=== PATIENT | male | born 1985 | race Caucasian/White ===

== ENCOUNTER → 2020-10-28 12:13 | Outpatient (CLI) | payer OTHER, SELFPAY ==
[2020-10-28 15:16] LABS: Hematocrit 39.9 % (40-54); Hemoglobin 12.8 g/dL (13.0-16.5); Mean Corp Hgb Conc 32.1 g/dL (32-36); Mean Corpuscular Hgb 28.1 pg (27.0-32.0); Mean Corpuscular Volume 87.7 fL (80-94); Mean Platelet Vol. 9.2 fl (6.2-12.0); Platelet Count 325 K/mm3 (150-450); RBC Distribution Width CV 16.2 % (11.6-14.6); Red Blood Count 4.55 M/mm3 (4.6-6.2)
[2020-10-28 15:43] LABS: AST(SGOT) 16 U/L (15-37); Alanine Aminotransfer ALT/SGPT 31 U/L (16-61); Albumin, Serum 3.6 g/dL (3.2-5.0); Alkaline Phosphatase 55 U/L (45-117); Anion Gap 2 (5-15); BUN 12 mg/dL (7-18); BUN/Creat Ratio 12.9 RATIO (10-20); CRP < 2.90 mg/L (0.0-3.0); Calcium,Total 9.1 mg/dL (8.5-10.1); Chloride 105 mmol/L (98-107); Creatinine, Serum 0.93 mg/dL (0.70-1.30); EST Glomerular Filtration Rate 98 mL/min (>60); Est Glom Filt Rate - Afr Amer 119 mL/min (>60); Globulin 3.6 g/dL (2.2-4.2); Glucose 98 mg/dL (74-106); Iron 35 ug/dL (65-175); Potassium 4.2 mmol/L (3.5-5.1); Protein, Total 7.2 g/dL (6.4-8.2); Sodium Level 139 mmol/L (136-145)
== END ==
PROVIDERS: PCP Family Medicine; Referring Provider Internal Medicine Gastroenterology; Visit Provider Internal Medicine Gastroenterology
DX: K50.90 Crohn's disease, unspecified, without complications (principal)
CPT/HCPCS: 36415; 80053; 83540; 85027; 86140

== ENCOUNTER → 2020-12-03 11:58 | Outpatient (CLI) | payer OTHER, SELFPAY | PROVIDERS: PCP Family Medicine; Referring Provider Internal Medicine Gastroenterology; Visit Provider Internal Medicine Gastroenterology | DX: K50.90 Crohn's disease, unspecified, without complications (principal) | CPT/HCPCS: 36415 ==

== ENCOUNTER → 2022-01-12 | Outpatient (CLI) | payer OTHER, SELFPAY ==
[2022-01-12 17:32] LABS: Hematocrit 37.6 % (40-54); Hemoglobin 12.5 g/dL (13.0-16.5); Mean Corp Hgb Conc 33.2 g/dL (32-36); Mean Corpuscular Hgb 29.1 pg (27.0-32.0); Mean Corpuscular Volume 87.4 fL (80-94); Mean Platelet Vol. 9.6 fl (6.2-12.0); Platelet Count 306 K/mm3 (150-450); RBC Distribution Width CV 13.5 % (11.6-14.6); RBC Distribution Width SD 43.3 fl (35.1-43.9); White Blood Count 6.5 K/mm3 (4.4-11.0)
[2022-01-12 17:59] LABS: ALB/GLOB Ratio 1.1 RATIO (0.9-2.4); AST(SGOT) 29 U/L (15-37); Alanine Aminotransfer ALT/SGPT 32 U/L (16-61); Alkaline Phosphatase 52 U/L (45-117); Anion Gap 5 (5-15); BUN 10 mg/dL (7-18); BUN/Creat Ratio 9.3 RATIO (10-20); Chloride 104 mmol/L (98-107); Creatinine, Serum 1.08 mg/dL (0.70-1.30); EST Glomerular Filtration Rate 82 mL/min (>60); Est Glom Filt Rate - Afr Amer 99 mL/min (>60); Globulin 3.8 g/dL (2.2-4.2); Glucose 98 mg/dL (74-106); Potassium 3.9 mmol/L (3.5-5.1); Protein, Total 7.8 g/dL (6.4-8.2); Sodium Level 138 mmol/L (136-145)
== END | disposition home or self-care (01) ==
PROVIDERS: PCP Family Medicine; Referring Provider Internal Medicine Gastroenterology; Visit Provider Internal Medicine Gastroenterology
DX: K50.80 Crohn's disease of both small and large intestine without complications (principal)
CPT/HCPCS: 36415; 80053; 85027; 86140

== ENCOUNTER → 2022-01-13 | Outpatient (CLI) | payer OTHER, SELFPAY ==
[2022-01-19 09:31] LABS: Calprotectin, Stool 271 ug/g (0-120)
== END | disposition home or self-care (01) ==
LOC: MTLAB 09:42
PROVIDERS: PCP Family Medicine; Referring Provider Internal Medicine Gastroenterology; Visit Provider Internal Medicine Gastroenterology
DX: K50.90 Crohn's disease, unspecified, without complications (principal)
CPT/HCPCS: 83993

== ENCOUNTER 2022-07-28 22:32 | Emergency (ER) | payer OTHER, SELFPAY ==
[2022-07-28 22:33] VITALS: BP 124/84; PULSE 78; RESP 18; TEMP 36.6; O2SAT 97; BMI 24.4
--- NOTE | 2022-07-28 22:57 | ED.VIS.GI ---
HPI <Dr. Kathy Newton DO - Last Filed: 07/30/22 07:00> HPI - GI History of Present Illness Chief Complaint: Constipation Informant: patient Narrative Narrative: Patient is a 36-year-old male with history of well-controlled Crohn's disease presenting with constipation. Patient states he has a history of constipation was never been this bad. He is on hard bowel movement last 7 days. He denies abdominal pain but is having a lot of rectal pressure. He is passing gas but less than normal. He denies any associated nausea or vomiting. He admits that he had a flu about a week ago and is having the sequelae of that currently. Denies any fever. He is on Humira. His GI doctor is Dr. Vides. Has tried stool softenrers, laxatives over the past few days and an enema prior to arrival. [facility] <Dr. Kathy Newton DO - Last Filed: 07/30/22 07:00> [facility] Medical History (Updated 07/29/22 @ 01:[address] Ignacio Iniguez DO) Crohn's disease Home Medications docusate sodium 100 mg capsule (Colace) 100 mg PO BID 10 days #20 caps 07/29/22 [Rx Last Taken Unknown] polyethylene glycol 3350 17 gram oral powder packet (Miralax) 17 g PO DAILY #30 ea 07/29/22 [Rx Last Taken Unknown] Allergy/AdvReac Type Severity Reaction Status Date / Time No Known Allergies Allergy Verified 07/28/22 22:36 Surgical History (Updated 07/28/22 @ 23:07 by Krystal Kirby) History of appendectomy Social History Smoking Status: Current some day smoker tobacco type: pipe ROS <Dr. Kathy Newton DO - Last Filed: 07/30/22 07:00> ROS ED Constitutional Constitutional ED: Denies chills or fever(s) ENT ENT ED: Denies sore throat Cardiovascular Cardiovascular: Denies chest pain Respiratory/Chest Respiratory/Chest: Denies cough Gastrointestinal Gastrointestinal: Reports constipation; Denies abdominal pain, diarrhea, nausea or vomiting Genitourinary Genitourinary ED: Denies dysuria or hematuria Musculoskeletal Musculoskeletal: Denies arthralgias or myalgias Integumentary Denies rash Neurologic Neurologic: Denies headache(s) or weakness Hematologic/Lymphatic Hematologic/Lymphatic: Denies easy bleeding or easy bruising EXAM <Dr. Kathy Newton, DO - Last Filed: 07/30/22 07:00> Physical Exam Const Vital Signs: 07/28/22 22:33 Temperature 97.9 F Temperature Source Temporal Pulse Rate 78 Respiratory Rate 18 Blood Pressure 124/84 H Blood Pressure Mean 97 Pulse Ox 97 Oxygen Delivery Method Room Air Positive well nourished and well developed General Appearance ED: well developed and NAD; Negative for pallor HEENT Reports moist mucous membranes HEENT Narrative: Slight crusting in the inner nares Eyes PERRL and EOMs intact bilaterally Neck supple Resp normal respiratory effort and clear to auscultation bilaterally Cardio regular rate, regular rhythm and no murmurs GI non-tender and non-distended GI Narrative: External hemorrhoids that are nonthrombosed and nonbleeding present. Digital rectal exam patient is significant pain and does not tolerate it well. Small piece of stool is in the rectal vault I do not palpate any large fecal impaction. Auscultation: normoactive bowel sounds Palpation: soft; Negative for guarding or rigid Back/Spine no CVA tenderness Neuro moves all extremities Sensorium / Orientation: alert Motor Exam: Negative for general weakness Psych mental status grossly normal and thought process normal Skin no wounds General Skin Exam: Negative for jaundice or pallor <Dr. Ignacio Iniguez, DO - Last Filed: 07/29/22 01:28> Physical Exam Const Vital Signs: 07/28/22 22:33 Temperature 97.9 F Temperature Source Temporal Pulse Rate 78 Respiratory Rate 18 Blood Pressure 124/84 H Blood Pressure Mean 97 Pulse Ox 97 Oxygen Delivery Method Room Air MDM <Dr. Kathy Newton, DO - Last Filed: 07/30/22 07:00> [facility] MDM Narrative Medical decision making narrative: Patient evaluated for constipation and rectal pressure. Rectal exam is not consistent with a fecal impaction. Patient's vital signs are normal. He does not have signs or symptoms of an obstruction including nausea, vomiting and he still passing gas. History is complicated because of his Crohn's disease. Patient is given a soapsuds enema with the assistance of viscous lidocaine due to discomfort. He tolerates about half of this. He still does not have a significant bowel movement. He is continue to feel more pressure and discomfort and feels that something is not right. Will obtain some labs as well as a CT of the abdomen pelvis. Patient is given a dose of IV morphine. Patient be signed out to oncoming physician, Dr. Iniguez, pending results and repeat evaluation. Lab Data Labs: Laboratory Results - last 24 hr 07/29/22 07/29/22 07/29/22 00:30 00:30 00:30 WBC 6.8 RBC 4.75 Hgb 13.9 Hct 41.2 MCV 86.7 MCH 29.3 MCHC 33.7 RDW Std Deviation 40.3 RDW Coeff of Jelani 12.7 Plt Count 289 MPV 9.4 Immature Gran % (Auto) 0.100 Neut % (Auto) 61.7 Lymph % (Auto) 23.3 Davie % (Auto) 14.2 H Eos % (Auto) 0.3 Baso % (Auto) 0.4 Absolute Neuts (auto) 4.2 Absolute Lymphs (auto) 1.59 Nucleated RBC % 0 Sodium 136 Potassium 4.2 Chloride 101 Carbon Dioxide 30.0 Anion Gap 5 BUN 7 Creatinine 1.17 Estim Creat Clear Calc 92.96 Est GFR (MDRD) Af Amer 90 Est GFR (MDRD) Non-Af 75 BUN/Creatinine Ratio 6.0 L Glucose 111 H Lactic Acid 1.0 Calcium 9.7 Total Bilirubin 0.70 AST 28 ALT 25 Alkaline Phosphatase 48 Total Protein 8.7 H Albumin 4.4 Globulin 4.3 H Albumin/Globulin Ratio 1.0 Radiography Diagnostic Testing: Clinical Impression(s) from Imaging Studies Abdomen/Pelvis CT 07/29/22 00:20 IMPRESSION: Scattered segmental colonic thickening most consistent with Crohn''s exacerbation, per clinical history Electronically Signed: John Causey MD at 0:57 EST , <Dr. Ignacio Iniguez, DO - Last Filed: 07/29/22 01:28> [facility] Lab Data Attestation: I reviewed the patient's lab results. Labs: Laboratory Results - last 24 hr 07/29/22 07/29/22 07/29/22 00:30 00:30 00:30 WBC 6.8 RBC 4.75 Hgb 13.9 Hct 41.2 MCV 86.7 MCH 29.3 MCHC 33.7 RDW Std Deviation 40.3 RDW Coeff of Jelani 12.7 Plt Count 289 MPV 9.4 Immature Gran % (Auto) 0.100 Neut % (Auto) 61.7 Lymph % (Auto) 23.3 Davie % (Auto) 14.2 H Eos % (Auto) 0.3 Baso % (Auto) 0.4 Absolute Neuts (auto) 4.2 Absolute Lymphs (auto) 1.59 Nucleated RBC % 0 Sodium 136 Potassium 4.2 Chloride 101 Carbon Dioxide 30.0 Anion Gap 5 BUN 7 Creatinine 1.17 Estim Creat Clear Calc 92.96 Est GFR (MDRD) Af Amer 90 Est GFR (MDRD) Non-Af 75 BUN/Creatinine Ratio 6.0 L Glucose 111 H Lactic Acid 1.0 Calcium 9.7 Total Bilirubin 0.70 AST 28 ALT 25 Alkaline Phosphatase 48 Total Protein 8.7 H Albumin 4.4 Globulin 4.3 H Albumin/Globulin Ratio 1.0 Radiography Diagnostic Testing: Clinical Impression(s) from Imaging Studies Abdomen/Pelvis CT 07/29/22 00:20 IMPRESSION: Scattered segmental colonic thickening most consistent with Crohn''s exacerbation, per clinical history Electronically Signed: Jhon Causey MD at 0:57 EST , Treatment and Re-Evaluation Narrative: The patient was signed out to me while awaiting laboratory studies and CT scan. His labs revealed no clinically significant finding and a CT scan showed no perforation or obstruction or intestinal abscess. I discussed with patient performing another enema or digital disimpaction for his constipation. He states he does not want that done any further and feels satisfied as we have ruled out bowel obstruction or necrosis. Therefore at this time I will prescribe Colace and MiraLAX to help with bowel movement over the next few days. Patient states she is agreeable to this plan. He states he will continue to try enemas at home and if he does not have any improvement of symptoms over the next few days will present for reevaluation. Discharge Plan Triage Chief Complaint: Constipation ED Provider: Kathy Newton Dx/Rx/DC Orders Clinical Impression: Rectal pressure, Constipation, Crohn's disease Instructions: ED Constipation (Adult), ED Crohn's Disease Prescriptions: New docusate sodium [Colace] 100 mg capsule 100 mg PO BID 10 Days Qty: 20 0RF polyethylene glycol 3350 [Miralax] 17 gram powder in packet 17 g PO DAILY Qty: 30 2RF Primary Care Provider: Caleb Hernandes Referrals: Caleb Hernandes MD [Primary Care Provider] - Activity Restrictions/Additional Instructions: Please keep yourself well-hydrated and use the prescribed medication to help stimulate a bowel movement. You can continue to try enemas at home but if medication and home enemas do not stimulate a bowel movement over the next 2 to 5 days he may need to return to the ER for manual disimpaction. If you have any further concerns please return for repeat evaluation Disposition Disposition: Home, Self Care Discharge Date/Time: 07/29/22 01:50
[2022-07-28] MEDS: Lidocaine Jelly 2% 20 ML Syringe (URO-JET) 1 APPLIC TOPICAL (23:35)
--- NOTE | 2022-07-29 00:20 | CT_ITS ---
INDICATION: rectal pain, constipation, history of Crohn''s EXAMINATION: CT Abdomen And Pelvis W/ Contrast Injection TECHNIQUE: Helically acquired images were obtained of the abdomen and pelvis following IV contrast. 2-D reconstructions reviewed. A radiation dose optimization technique was used for this scan. IV Contrast dosage and agent: 100 mL Isovue 300 Oral contrast: None. COMPARISON: None. FINDINGS: LOWER CHEST: No acute findings within the imaged lung bases. Benign punctate perifissural lymph node along the anterior right lung base. Heart size within normal limits. LIVER: Homogeneous. No concerning lesion. GALLBLADDER AND BILIARY TREE: No calcified gallstones identified. No gallbladder wall edema demonstrated. No significant biliary ductal dilation. PANCREAS: No discrete mass or peripancreatic edema. SPLEEN: Normal size without focal cystic or solid mass. ADRENAL GLANDS: Unremarkable. KIDNEYS AND URETERS: Normal renal size and position. No hydronephrosis. No concerning lesion. Small simple appearing 1 cm left renal cyst requiring no additional follow-up. PERITONEUM: No peritoneal free air or significant free fluid. No other fluid collection. RETROPERITONEUM: No retroperitoneal mass or pathologic fluid collection. BOWEL: Status post appendectomy. Scattered mild segmental wall thickening along transverse, descending and sigmoid colon. No evidence of bowel obstruction. LYMPH NODES: No enlarged mesenteric or retroperitoneal lymph nodes. VESSELS: No acute findings. No abdominal aortic aneurysm. URINARY BLADDER: Unremarkable as visualized. REPRODUCTIVE ORGANS: No pelvic masses. ABDOMINAL WALL: No acute findings or significant hernia defect. BONES: Intact with no suspicious osseous lesion. CT/Abdomen/Pelvis W IV Cont ONLY IMPRESSION: Scattered segmental colonic thickening most consistent with Crohn''s exacerbation, per clinical history Electronically Signed: John Causey MD at 0:57 EST ,
[2022-07-29] MEDS: 0.9% Normal Saline 1,000 ML 1000 ML IV (00:27)
[2022-07-29] MEDS: Morphine 4 MG/ML Syringe IV (00:27)
[2022-07-29 00:39] LABS: Absolute Lymphocyte Count 1.59 X10^3/uL (0.83-4.51); Absolute Neutrophil Count 4.2 X10^3/uL (2.0-7.7); Basophil# 0.03 X10^3/uL; Basophil% 0.4 % (0-1); Eosinophil# 0.02 X10^3/uL; Eosinophils% 0.3 % (0-5); Hematocrit 41.2 % (40-54); Hemoglobin 13.9 g/dL (13.0-16.5); Lymphocyte # 1.59 X10^3/ul (0.83-4.51); Lymphocyte % 23.3 % (19-41); Mean Corp Hgb Conc 33.7 g/dL (32-36); Mean Corpuscular Hgb 29.3 pg (27.0-32.0); Mean Corpuscular Volume 86.7 fL (80-94); Mean Platelet Vol. 9.4 fl (6.2-12.0); Monocyte# 0.97 X10^3/uL; Monocyte% 14.2 % (0-10); NRBC Flagged by Analyzer 0 % (0-5); Neutrophil # 4.19 X10^3/uL (2.7-7.7); Neutrophil % 61.7 % (47-70); Platelet Count 289 K/mm3 (150-450); RBC Distribution Width CV 12.7 % (11.6-14.6); RBC Distribution Width SD 40.3 fl (35.1-43.9); Red Blood Count 4.75 M/mm3 (4.6-6.2); White Blood Count 6.8 K/mm3 (4.4-11.0)
[2022-07-29 00:55] LABS: AST(SGOT) 28 U/L (15-37); Alanine Aminotransfer ALT/SGPT 25 U/L (16-61); Albumin, Serum 4.4 g/dL (3.2-5.0); Alkaline Phosphatase 48 U/L (45-117); Anion Gap 5 (5-15); BUN 7 mg/dL (7-18); Calcium,Total 9.7 mg/dL (8.5-10.1); Chloride 101 mmol/L (98-107); Creatinine, Serum 1.17 mg/dL (0.70-1.30); EST Glomerular Filtration Rate 75 mL/min (>60); Est Glom Filt Rate - Afr Amer 90 mL/min (>60); Estimated Creatinine Clearance 92.96 ml/min; Globulin 4.3 g/dL (2.2-4.2); Glucose 111 mg/dL (74-106); Potassium 4.2 mmol/L (3.5-5.1); Protein, Total 8.7 g/dL (6.4-8.2); Sodium Level 136 mmol/L (136-145)
[2022-07-29 01:37] VITALS: BP 123/70; PULSE 87; RESP 16; O2SAT 97
== END 2022-07-29 01:50 | disposition home or self-care (01) ==
PROVIDERS: Emergency Provider Emergency Medicine; PCP Family Medicine; Visit Provider Emergency Medicine
DX: K59.00 Constipation, unspecified (principal); K50.90 Crohn's disease, unspecified, without complications; K64.4 Residual hemorrhoidal skin tags; F17.290 Nicotine dependence, other tobacco product, uncomplicated; Z79.899 Other long term (current) drug therapy
CPT/HCPCS: 74177; 80053; 83605; 85025; 96361; 96374; 99285; J7030; Q9967; A4216

== ENCOUNTER 2022-08-01 11:40 | Emergency (ER) | payer OTHER, SELFPAY ==
[2022-08-01 11:41] VITALS: BP 136/84; PULSE 76; RESP 14; TEMP 36.5; O2SAT 99; BMI 23.8
--- NOTE | 2022-08-01 12:05 | RAD_ITS ---
STUDY: X-RAY - ABDOMEN/PELVIS REASON FOR EXAM: Male, 36 years old. CONSTIPATION TECHNIQUE: AP supine and upright views of the abdomen and pelvis. COMPARISON: None. FINDINGS: Normal visualized lung bases. There is an unremarkable bowel gas pattern. There is no demonstrated free abdominal air. The visualized liver, spleen and kidneys are grossly normal in size and morphology. Normal soft tissue structures. Mild levoscoliosis of the lumbar spine. RAD/Abd Inc Decub and/or Erect IMPRESSION: Normal x-ray examination of the abdomen and pelvis. Electronically Signed: Jad Houston MD at 12:23 EST ,
--- NOTE | 2022-08-01 15:01 | ED.VIS.GI ---
HPI HPI - GI History of Present Illness Chief Complaint: Abd Pain Narrative Narrative: 36-year-old male past medical history of well-controlled Crohn's disease presents with day 11 of constipation. He states he was seen in the emergency department on Monday, 4 days ago, had manual disimpaction and a negative CT for abscess or perforation but presents with rectal pain, bleeding, and inability to have a bowel movement. He feels pressure in the bilateral quadrants of his abdomen. He denies any fever or chills. No nausea or vomiting. He states he discussed his case with his pharmaceutical engineer, Dr. Campos, who reportedly sent him in for us to discuss his case with Dr. Quach. He is already on Colace and MiraLAX. He states that the pressure is becoming more unbearable. Past surgical history does include remote appendectomy. [facility] Medical History Crohn's disease Home Medications docusate sodium 100 mg capsule (Colace) 100 mg PO BID 10 days #20 caps 07/29/22 [Rx Last Taken Unknown] polyethylene glycol 3350 17 gram oral powder packet (Miralax) 17 g PO DAILY #30 ea 07/29/22 [Rx Last Taken Unknown] peg 3350-electrolytes 236 gram-22.74 gram-6.74 gram-5.86 gram solution (Golytely) 240 ml PO Q10M PRN #4,000 mL 08/01/22 [Rx Last Taken Unknown] Allergy/AdvReac Type Severity Reaction Status Date / Time No Known Allergies Allergy Verified 08/01/22 11:45 Surgical History History of appendectomy Social History Smoking Status: Current some day smoker tobacco type: pipe ROS ROS ED ROS Narrative Constitutional: No fever, no chills. HEENT: No sore throat. No neck pain. No loss of vision. No rhinorrhea. Cardiovascular: No chest pain. No palpitations. No pedal edema. Respiratory: No cough, no shortness of breath. Abdominal: Bilateral lower quadrant abdominal pain. No nausea. No vomiting. Positive constipation. Genitourinary: No dysuria. No hematuria. Musculoskeletal: No myalgias. No arthralgias. Neurologic: No headaches. No dizziness. No lightheadedness. Skin: No rash. No change in color. Psychiatric: No depression. No anxiety. EXAM Physical Exam Narrative Exam Narrative: Afebrile. Vital signs noted. HEENT: Normocephalic. Atraumatic. PERRL, EOMI. Neck soft and supple. No point tenderness or step off. Cardiovascular: Regular rate and rhythm. No murmurs, rubs, or gallops appreciated. Respiratory: No tachypnea. Lungs clear to auscultation bilaterally. Gastrointestinal: Abdomen soft, mild tenderness bilateral lower quadrants with normoactive bowel sounds. No rebound or guarding. Neurological: Awake. Alert. Nonfocal, nonlateralizing. Skin: No rash. Normal color. No pallor. Musculoskeletal: No pedal edema. Full range of motion extremities. Const Vital Signs: 08/01/22 11:41 Temperature 97.7 F L Temperature Source Temporal Pulse Rate 76 Respiratory Rate 14 Blood Pressure 136/84 H Blood Pressure Mean 101 Pulse Ox 99 MDM MDM MDM Narrative Medical decision making narrative: I reviewed the patient's EMR. Per his provider note, he had a CT scan which had intermittent wall thickening in certain areas consistent with Crohn's disease. He is up-to-date on his Humira. I will discuss patient with Dr. Campos. Nursing protocol ordered abdominal x-rays which I interpreted as normal, nonspecific bowel gas pattern. Radiology confirmed this. In discussion with Dr. Campos, patient's steroid has already been written. He had been told that he should have a liquid diet for the next [address] Campos, his pharmaceutical engineer also wanted him to have GoLytely and drink 2 L this evening and 2 L in the morning tomorrow. He will follow-up with him next week regarding new immunotherapy. I feel he can be discharged safely home with follow-up. Return instructions were reviewed. Disposition is discharged home in stable condition. Radiography Diagnostic Testing: Clinical Impression(s) from Imaging Studies Abdomen X-Ray 08/01/22 12:05 IMPRESSION: Normal x-ray examination of the abdomen and pelvis. Electronically Signed: Jad oHuston MD at 12:23 EST , Discharge Plan Triage Chief Complaint: Abd Pain ED Provider: Sergei Jose Dx/Rx/DC Orders Clinical Impression: Crohn's disease, Constipation Instructions: ED Constipation (Adult), ED Crohn's Disease Prescriptions: New peg 3350-electrolytes [Golytely] 236-22.74-6.74 -5.86 gram recon soln 240 ml PO Q10M PRN Qty: 4000 0RF Rx Instructions: 2 L by mouth total in the evening on day 1. 2 L by mouth in the morning on day 2. No Action docusate sodium [Colace] 100 mg capsule 100 mg PO BID 10 Days Qty: 20 0RF polyethylene glycol 3350 [Miralax] 17 gram powder in packet 17 g PO DAILY Qty: 30 2RF Primary Care Provider: Caleb Hernandes Referrals: Caleb Hernandes MD [Primary Care Provider] - Gopal Campos MD [Non-Staff] - 1 Week Disposition Disposition: Home, Self Care
== END 2022-08-01 15:45 | disposition home or self-care (01) ==
PROVIDERS: Emergency Provider Emergency Medicine; PCP Family Medicine; Visit Provider Emergency Medicine
DX: K50.90 Crohn's disease, unspecified, without complications (principal); K59.00 Constipation, unspecified; K62.5 Hemorrhage of anus and rectum; F17.200 Nicotine dependence, unspecified, uncomplicated
CPT/HCPCS: 74019; 99283

== ENCOUNTER → 2022-08-11 | Outpatient (CLI) | payer OTHER, SELFPAY | END | disposition home or self-care (01) | LOC: MTLAB 11:21 | PROVIDERS: PCP Family Medicine; Referring Provider Internal Medicine Gastroenterology; Visit Provider Internal Medicine Gastroenterology | DX: K50.80 Crohn's disease of both small and large intestine without complications (principal) | CPT/HCPCS: 36415 ==

== ENCOUNTER → 2022-09-30 | Outpatient (CLI) | payer OTHER, SELFPAY ==
--- NOTE | 2022-09-30 10:30 | MRI_ITS ---
STUDY: MRI ABDOMEN AND PELVIS WITH AND WITHOUT CONTRAST REASON FOR EXAM: Male, 37 years old. CROHN''S DISEASE; FISTULA -- ENTEROGRAPHY TECHNIQUE: Standardized fat and water weighted pulse sequences were obtained in all 3 orthogonal planes post contrast administration. 15mL IV Clariscan injected.; 1500 mL Oral contrast Breeza/Volumen was administered for the contrast portion of the examination. Exam performed utilizing enterography protocol. COMPARISON: CT July 29, 2022 FINDINGS: The visualized lung bases are unremarkable. The visualized portions of the heart are within normal limits. Normal liver. There is layering material with possible sludge in the gallbladder. Normal spleen. Normal pancreas. Normal bilateral adrenal glands. Normal right kidney. There is 1.0 cm cyst of the left kidney. Normal visualized stomach. Normal small intestine. There is mild wall thickening of the transverse colon, series 5 image 17/24. There is moderate stool in the colon. There is non-visualization of the appendix. Normal abdominal aorta. Normal inferior vena cava. Normal retroperitoneum. Normal bladder. There is no free fluid in the abdomen or pelvis. Normal abdominal wall. Normal osseous structures. MRI/MRI Abd WITH and W/O Contrast IMPRESSION: Wall thickening of the transverse colon consistent with inflammatory or infectious colitis. No obstruction. No fistula seen. No dilated or thick walled loops of small intestine. Electronically Signed: Chavez Elkins MD at 10:41 EST ,
--- NOTE | 2022-09-30 10:35 | RAD_ITS ---
STUDY: X-RAY - ORBITS REASON FOR EXAM: Male, 37 years old. Evaluate for metal prior to MRI study TECHNIQUE: 2 view(s) of the orbits were obtained. COMPARISON: None. FINDINGS: Normal bilateral orbits without a metallic orbital foreign body. Normal visualized facial bones. Normal paranasal sinuses. The soft tissue structures are unremarkable. RAD/Orbits for Foreign Body IMPRESSION: No demonstrated metallic orbital foreign body. Patient is cleared for MRI examination. Electronically Signed: Sukhdeep Borrero, at 10:46 EST ,
[2022-09-30 11:17] VITALS: BP 127/77; PULSE 59; RESP 16; O2SAT 100
[2022-09-30 11:18] VITALS: BP 127/77; PULSE 58; RESP 16; O2SAT 100; BMI 23.4
[2022-09-30] MEDS: Glucagon 1 MG/ML Syringe IV (12:20)
[2022-09-30 12:39] VITALS: BP 113/74; PULSE 64; RESP 16; O2SAT 99
== END | disposition home or self-care (01) ==
PROVIDERS: PCP Family Medicine; Referring Provider Internal Medicine Gastroenterology; Visit Provider Internal Medicine Gastroenterology
DX: K50.90 Crohn's disease, unspecified, without complications (principal); K60.3 Anal fistula
CPT/HCPCS: 70030; 74183; 96374; A9575; A4216; J1610

== ENCOUNTER → 2022-11-08 | Outpatient (CLI) | payer OTHER, SELFPAY | END | disposition home or self-care (01) | LOC: LABSPEC 15:47 | PROVIDERS: PCP Family Medicine; Visit Provider Otolaryngology Otolaryngology/Facial Plastic Surgery | DX: J32.9 Chronic sinusitis, unspecified (principal) | CPT/HCPCS: 87070; 87077; 87186; 87205 ==

== ENCOUNTER → 2022-11-23 | Outpatient (CLI) | payer OTHER, SELFPAY ==
--- NOTE | 2022-11-23 12:14 | CT_ITS ---
STUDY: CT MAXILLOFACIAL SINUSES REASON FOR EXAM: Male, 37 years old. SINUSITIS RADIATION DOSAGE (If Supplied By Facility): CTDIvol = ( 28.14 ) mGy, DLP = ( 749.71 ) mGycm TECHNIQUE: The patient was scanned in a multi detector CT scanner. High resolution axial imaging was performed without the administration of intravenous contrast material. Sagittal and coronal images were reconstructed. Individualized dose optimization techniques were used for this CT. COMPARISON: None. FINDINGS: FRONTAL SINUSES: Normal aeration, without mucosal inflammatory disease. ETHMOIDAL SINUSES: Normal aeration, with minimal mucosal inflammatory disease. MAXILLARY SINUSES: Normal aeration, minimal mucosal thickening in the left maxillary sinus SPHENOIDAL SINUSES: Normal aeration, without mucosal inflammatory disease. There is patency of the bilateral maxillary infundibuli with normal uncinate processes, ethmoid bullae, and hiatus semilunaris. Normal bilateral middle turbinates. Normal bilateral inferior turbinates. Normal midline nasal septum. There is patency of the bilateral nasal airways. The visualized osseous structures are normal. The visualized bilateral orbital contents are normal. CT/Sinus/Facial Bone IMPRESSION: Minimal mucosal thickening in the ethmoid and left maxillary sinus Electronically Signed: Jefferson Vance MD at 13:00 EDT ,
== END | disposition home or self-care (01) ==
LOC: CT 12:11
PROVIDERS: PCP Family Medicine; Referring Provider Otolaryngology Otolaryngology/Facial Plastic Surgery; Visit Provider Otolaryngology Otolaryngology/Facial Plastic Surgery
DX: J32.9 Chronic sinusitis, unspecified (principal)
CPT/HCPCS: 70486

== ENCOUNTER → 2022-11-23 | Outpatient (CLI) | payer OTHER, SELFPAY ==
[2022-11-25 20:08] LABS: QNTFERON TB Mitogen Value > 10.00 IU/mL (.); QNTFERON TB1+ Ag Value 0.19 IU/mL (.); QNTFERON TB2+ Ag Value 0.32 IU/mL (.)
[2022-11-25 20:12] LABS: QNTIFERON TB Positive Criteria Negative (Negative)
== END | disposition home or self-care (01) ==
LOC: MTLAB 11:49
PROVIDERS: PCP Family Medicine; Referring Provider Internal Medicine Gastroenterology; Visit Provider Internal Medicine Gastroenterology
DX: K50.10 Crohn's disease of large intestine without complications (principal)
CPT/HCPCS: 36415; 86480

== ENCOUNTER → 2023-01-31 | Outpatient (CLI) | payer OTHER, SELFPAY ==
[2023-01-31 17:34] LABS: Erythrocyte Sedimentation Rate 8 mm/hr (0-20)
[2023-01-31 17:37] LABS: Hematocrit 38.1 % (40-54); Hemoglobin 12.6 g/dL (13.0-16.5); Mean Corp Hgb Conc 33.1 g/dL (32-36); Mean Corpuscular Hgb 28.8 pg (27.0-32.0); Mean Corpuscular Volume 87.2 fL (80-94); Mean Platelet Vol. 9.4 fl (6.2-12.0); Platelet Count 284 K/mm3 (150-450); RBC Distribution Width CV 13.2 % (11.6-14.6); RBC Distribution Width SD 42.7 fl (35.1-43.9); Red Blood Count 4.37 M/mm3 (4.6-6.2)
[2023-01-31 18:05] LABS: CRP 6.57 mg/L (0.0-3.0)
== END | disposition home or self-care (01) ==
LOC: MTLAB 16:14
PROVIDERS: PCP Family Medicine; Referring Provider Internal Medicine Gastroenterology; Visit Provider Internal Medicine Gastroenterology
DX: K50.90 Crohn's disease, unspecified, without complications (principal)
CPT/HCPCS: 36415; 85027; 85652; 86140

== ENCOUNTER → 2023-02-03 | Outpatient (CLI) | payer OTHER, SELFPAY ==
[2023-02-09 14:09] LABS: Calprotectin, Stool 453 ug/g (0-120)
== END | disposition home or self-care (01) ==
LOC: MTLAB 09:16
PROVIDERS: PCP Family Medicine; Referring Provider Internal Medicine Gastroenterology; Visit Provider Internal Medicine Gastroenterology
DX: K50.90 Crohn's disease, unspecified, without complications (principal)
CPT/HCPCS: 83993

== ENCOUNTER → 2023-08-30 | Outpatient (CLI) | payer OTHER, SELFPAY ==
--- OUTSIDE RECORDS SUMMARY | 2023-08-30 16:08 | XMS RPT_ITS | CCD ---
Author Name Unknown Address [address] [place] [address] Organization [facility] Care Team Providers Care Cell Stripper Name Role Phone Kashmir Hernandes Unavailable Unavailable Kashmir Hernandes Unavailable Unavailable No Doctor Assigned, Nodr Unavailable Unavail able Kashmir Hernandes Primary Care Provider JES, ROBIN RUTH Attending Unavail able JES, ROBIN RUTH Referring Unavail able KASHMIR HERNANDES Primary Care Unavailable JES, ROBIN RUTH Attending Unavail able KASHMIR HERNANDES Primary Care Unavailable JES, ROBIN RUTH Attending Unavail able KASHMIR HERNANDES Primary Care Unavailable ABDULLAHI SAUCEDO Consulting Unavail able KASHMIR HERNANDES Primary Care Unavailable ALEXIS ROMAN Admitting Unavailable MILLIE MAURER Attending Unavailable Kashmir Hernandes MD Primary Care Provider Medications Current Medications Medication Drug Class(es) Dates Sig (Normalized) Sig (Original) budesonide 3 mg delayed release oral capsule (3 sources) Corticosteroid Start: 01-09-2023 End: 02-09-2023 take 1 capsule by mouth every twenty-four hours at breakfast budesonide (ENTOCORT EC) 3 mg 24 hr capsule Take 3 (three) capsules (9 mg total) by mouth daily with breakfast Start: 01/10/23. 90 capsule 0 01/10/2023 02/09/2023 Active ferrous sulfate (2 sources) take 1 capsule by mouth once daily as needed ferrous sulfate (IRON ORAL) Take 1 capsule by mouth daily as needed . 0 Active Completed/Discontinued Medications Medication Drug Class(es) Dates Sig (Normalized) Sig (Original) acetaminophen 325 mg oral tablet (1 source) Start: 01-08-2023 End: 01-09-2023 take 1 tablet by mouth every four hours as needed for pain and headache 650 mg, Oral, Every 4 hours PRN, mild pain, fever 100.4 F or greater, headaches, Starting on Mon01/08/23 at 1935 0.5 ml HYDROmorphone hydrochloride 1 mg/ml prefilled syringe (1 source) Opioid Agonist Start: 01-08-2023 End: 01-08-2023 HYDROmorphone (DILAUDID) injection 1 mg iopamidoL (ISOVUE-370) 370 mg iodine /mL (76 %) injection 75 mL (1 source) Start: 01-08-2023 End: 01-08-2023 iopamidoL (ISOVUE-370) 370 mg iodine /mL (76 %) injection 75 mL 1 ml morphine sulfate 2 mg/ml cartridge (1 source) Opioid Agonist Start: 01-08-2023 End: 01-09-2023 take 2-4 mg intravenously every three hours as needed 2-4 mg, Intravenous, Every 3 hours PRN (may repeat), moderate to severe pain, Starting on Mon01/08/23 at 1935 Initiat e with 2 mg IV every 3 hours prn moderate to severe pain. For unrelieved pain, may repeat 2 mg within 30 minutes of initial dose. If pain is RELIEVED after repeat dose, change to 4 mg every 3 hours prn moderate to severe pain. If pain is UNrelieved after repeat dose, or patient requires dose reduction, call physician. May use IV for breakthrough pain or if unable to tolerate enteral routes. naloxone (NARCAN) injection 0.1 mg (1 source) Start: 01-08-2023 End: 01-09-2023 naloxone (NARCAN) injection 0.1 mg 2 ml ondansetron 2 mg/ml injection (1 source) Serotonin-3 Receptor Antagonist Start: 01-08-2023 End: 01-08-2023 ondansetron (ZOFRAN) injection 4 mg ondansetron (ZOFRAN-ODT) disintegrating tablet 4 mg (1 source) Start: 01-08-2023 End: 01-09-2023 take 1 tablet by mouth every six hours as needed for nausea and vomiting ondansetron (ZOFRAN-ODT) disintegrating tablet 4 mg pantoprazole 40 mg injection (1 source) Proton Pump Inhibitor Start: 01-08-2023 End: 01-09-2023 pantoprazole (PROTONIX) injection 40 mg 1000 ml sodium chloride 9 mg/ml injection (3 sources) Start: 01-08-2023 End: 01-09-2023 sodium chloride (PF) (NS) flush 5 mL Problems Problem Classification Problem Date Documented Date Episodic/Chronic Administrative/social admission (2 sources) Encounter for administrative examinations, unspecified; Translations: [Encounter for administrative examinations, unspecified] Onset: 04-27-2022 Episodic Fluid and electrolyte disorders (3 sources) Dehydration; Translations: [Dehydration] Onset: 01-08-2023 Episodic Other screening for suspected conditions (not mental disorders or infectious disease) (1 source) Breast neoplasm screening status; Translations: [Other screening mammogram] Episodic Regional enteritis and ulcerative colitis (5 sources) Crohn's disease of large intestine without complications; Translations: [Crohn's disease of colon] Onset: 01-08-2023 Chronic Unclassified (1 source) Patient encounter status; Translations: [Routine general medical examination at a health care facility] Results Test Name Value Interpretation Reference Range Facil ity Vital Signs Date Time Vital Sign Value Performing Clinician Tad avalos 01-09-2023 10:25-0400 Body height 180.3 cm Bret Case MD Work Phone: [facility] 01-09-2023 10:23-0400 Body temperature 98.49 [degF] rBet Case MD Work Phone: [facility] 01-09-2023 10:23-0400 Diastolic blood pressure 67 mm[Hg] Bret Case MD Work Phone: [facility] 01-09-2023 10:23-0400 Heart rate 64 /min Bret Case MD Work Phone: [facility] 01-09-2023 10:23-0400 Respiratory rate 16 /min Bret Case MD Work Phone: [facility] 01-09-2023 10:23-0400 SaO2% (BldA) [Mass fraction] 98 % Bret Case MD Work Phone: [facility] 01-09-2023 10:23-0400 Systolic blood pressure 114 mm[Hg] Bret Case MD Work Phone: [facility] 01-08-2023 17:13-0400 Body mass index (BMI) [Ratio] 23.71 kg/m2 Bret Case MD Work Phone: [facility] 01-08-2023 17:13-0400 Body weight 77.11 kg Bret Case MD Work Phone: [facility] Encounters Encounter Date Encounter Type Care Provider Facility Start: 01-08-2023 End: 01-09-2023 ambulatory ABDULLAHI AKBAR [facility] Start: 01-08-2023 End: 01-09-2023 Emergency department patient visit Bret Case MD Work Phone: [facility] Start: 04-27-2022 End: 04-27-2022 ambulatory [facility] Start: 04-27-2022 End: 04-27-2022 Encounter for general adult medical examination without abnormal findings [facility] Start: 05-23-2019 End: 05-24-2019 [facility] Start: 05-23-2019 End: 05-23-2019 Subsequent hospital visit by physician Robin Mcwilliams Work Phone: [facility] Procedures Date Procedure Procedure Detail Performing Clinician Start: 01-09-2023 Smr prim src gram/gi emsa stain bct fungi/cell Bret Case MD Work Phone: Start: 01-09-2023 Basic metabolic pane l calcium total Ahmad Tee Roman MD Work Phone: Start: 01-08-2023 Ct abdomen & pelvis w/contrast material Bret Case MD Work Phone: Start: 01-08-2023 Comprehensive metabo lic panel Bret Case MD Work Phone: Start: 05-23-2019 Standard chest X-ray Ma tthew Faraz Mcwilliams Work Phone: Plan of Treatment Date Care Activity Detail Author Start: 04-14-2019 Influenza vaccination given SEQUENTIAL INFLUENZA VACCINE (#1) [facility] Start: 1988 History and physical examination, annual for health maintenance Wellness Visit [facility] Start: 1985 Tetanus vaccination TETANUS EVERY 10 YR [facility] End: 01-08-2023 Gastrointestinal pathogens DNA and RNA panel - Stool by ZAID with non-probe detection [facility] Work Phone: Payers Date Payer Category Payer Private Health Insurance [id number] 2022 Unknown [facility] HMO/[place] CE PLUS/KAMILLE/KAMILLE PLUS [id number] 2022-Present [phone] [address] [place] [address] [id number] 2018 Private Health Insurance 1985 Unknown [id number] 1985 Unknown [id number] 1985 Unknown [id number] Social History Date Type Detail [facility] Start: 1985 Sex Assigned At Not on file [facility] Start: 01-08-[address] [facility] Never smoked tobacco [facility] Start: 01-08-2023 Tobacco use and exposure Smoke less tobacco non-user [facility] Start: 01-08-2023 History of Social function [facility] Start: 01-08-2023 Tobacco use panel [facility] Start: 05-23-2019 Gender identity Identifies as male gender (finding) [facility] Start: 05-23-2019 Sexual orientation Heterosexual (fin ding) [facility] Start: 12-29-2022 End: 01-08-2023 Exposure to SARS-CoV-2 (event) Not sure [facility] NEGATED: Highlighted rowStart: NINF History of tobacco use Passive smoker [facility] Clinical Notes 01-08-2023 to 01-09-2023 Millie Maurer MD - 01/09/2023 11:[address] - 01/09/2023 9:06 AM Nilsa Maurer MD - 01/09/2023 8:29 AM EDTPlan of Care - Lisa Iqbal RN - 01/09/2023 3:50 AM EDT Note Date & Type Note Facility 01-09-2023 Hospital course Narrative [facility] [place] [facility] Efren Cosby Admitted: 01/08/2023 Discharge Date: 01/09/23 PCP Handoff Recommended Outpatient Testing Follow-up with gastroenterology and PCP Results Pending At Discharge Pending Lab and Radiology Results Order Current Status Stool/GI PCR Panel (Includes Ova and Parasites) In process WBC Stain-Stool (Fecal Leukocytes) In process Clinical Summary Assessment and Plan Efren Cosby is a 37 y.o. male patient of Kashmir Hernandes MD with history of Crohn disease last colonoscopy in July following Dr. Wilde in [place] presented to [facility] with abdominal pain vomiting diarrhea. Diarrhea Nausea and vomiting Abdominal pain Crohn's disease flare CT scan abdomen pelvis with IV contrast reviewed. Showed diffuse thickening of the colon and the terminal ileum. Liquid diet and advance as tolerated Pain management IV fluids Budesonide 9 mg p.o. daily Zofran as needed Consult GI Just finished course of Skyrizi, used to be on Humira before Follow results for C. difficile, stool PCR, and fecal leukocytes The patient feels better. Discussed starting budesonide. 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 The patient feels that he can go home today. Discussed advancing diet as tolerated and he wants to go home if he tolerates clear liquids. He will call his pre kindergarten teacher in the morning to get an appointment. He also asked for referral to [facility] gastroenterology because in the near future he will need to transfer care to [facility] gastroenterology because his pre kindergarten teacher is about to retire. Discussed maintaining hydration at home. We will discharge the patient on budesonide 9 mg daily. Anemia No evident blood loss at this time and hemoglobin is stable Continue to monitor Outpatient evaluation and management Discharge Medications Discharge Medications New Medications Details budesonide 3 mg 24 hr capsule Commonly known as: ENTOCORT EC Start taking on: January 10, 2023 Take 3 (three) capsules (9 mg total) by mouth daily with breakfast Start: 01/10/23. Quantity: 90 capsule Medications To Continue Details FIBER GUMMIES ORAL Take 1 tablet by mouth daily as needed . IRON ORAL Take 1 capsule by mouth daily as needed . METAMUCIL ORAL Take 1 Dose by mouth daily as needed . PROBIOTIC ORAL Take 1 capsule by mouth daily as needed . SKYRIZI IV Infuse into a venous catheter . Physician(s) Follow Up: No follow-up provider specified. Condition at Discharge: Stable Disposition: Home I reviewed discharge recommendations with the patient in person. Patient instructions, including activity, were given to the patient/family at discharge. On day of discharge I saw Efren Cosby and spent: > 30 minutes on discharge. Completed by: Millie Maurer on 01/09/23, 11:02 AM documented in this encounter [facility] 01-09-2023 History of Presen t illness Narrative Nutrition Care Initial Assessment Reason for visit: Nursing Referral for poor oral intakes Nutrition Diagnosis: Inadequate energy intake related to inability to consume sufficient energy as evidenced by NPO. Nutrition Intervention: Initiate meals, as medically able Nutrition Prescription: Diet: liquids to regular, as medically able Oral nutrition supplement: as needed Nutrition Goals: Source of Nutrition in next 24-48 hrs Start Date:01/09/2023 Expected End Date:01/15/2023 Nutrition Education: No needs at this time Assessment: Pertinent clinical information: Diarrhea vomiting due to exacerbation of Crohn disease Past Medical History: Diagnosis Date Crohn's colitis (HCC) Height: Current weight: 77.1 kg (170 lb) BMI There is no height or weight on file to calculate BMI. Weight hx: Wt Readings from Last 5 Encounters: 01/08/23 77.1 kg (170 lb) Current diet order: NPO Recent intake: poor. Current intake does not meet estimated needs. 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 Office [phone] [facility] [place] Assessment and Plan Efren Cosby is a 37 y.o. male patient of Kashmir Hernandes MD with history of Crohn disease last colonoscopy in July following Dr. Wilde in [place] presented to [facility] with abdominal pain vomiting diarrhea. Diarrhea Nausea and vomiting Abdominal pain Crohn's disease flare CT scan abdomen pelvis with IV contrast reviewed. Showed diffuse thickening of the colon and the terminal ileum. Liquid diet and advance as tolerated Pain management IV fluids Budesonide 9 mg p.o. daily Zofran as needed Consult GI Just finished course of Skyrizi, used to be on Humira before Follow results for C. difficile, stool PCR, and fecal leukocytes The patient feels better. Discussed starting budesonide. 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 The patient feels that he can go home today. Discussed advancing diet as tolerated and he wants to go home if he tolerates clear liquids. He will call his pre kindergarten teacher in the morning to get an appointment. He also asked for referral to [facility] gastroenterology because in the near future he will need to transfer care to [facility] gastroenterology because his pre kindergarten teacher is about to retire. Discussed maintaining hydration at home. We will discharge the patient on budesonide 9 mg daily. Anemia No evident blood loss at this time and hemoglobin is stable Continue to monitor Outpatient evaluation and management Disposition Estimated Discharge Date: 01/11/2023 Discharge Location: home Outpatient Testing: Quality Measures DVT Prophylaxis: ambulation only Juarez Catheter: absent Code Status Full Code; Primary Contact Information Subjective Evaluated the patient. Feels better. Denies any abdominal pain nausea or vomiting. Objective BP (!) 99/57 Pulse 64 Temp 98 F (36.7 C) (Oral) Resp 16 Wt 77.1 kg (170 lb) SpO2 97% Physical Examination General Appearance: alert; well appearing; in no acute distress HEENT: Head- normocephalic; Eyes- EOMI, sclera anicteric; Throat- mucous membranes moist Cardiovascular: regular rate and rhythm; normal S1, S2; no murmurs, rubs, clicks or gallops; peripheral edema absent Respiratory: lungs clear to auscultation; without wheezes, rales or rhonchi; on room air Abdomen: soft, non-tender, non-distended Neurological: oriented x 3; normal speech; no focal findings or movement disorder noted Musculoskeletal: no significant deformity or tenderness to palpation Skin: normal coloration Psych: normal mood and affect documented in this encounter [facility] 01-09-2023 Note Formatting of this n ote might be different from the original. Problem: Actual or potential alteration in health Goal: Absence of healthcare acquired conditions Outcome: Partially Met Goal: Knowledge of Interdisciplinary Plan of Care Outcome: Partially Met Goal: Knowledge of Enviroment Outcome: Partially Met Problem: Plan for Discharge Goal: Knowledge of discharge plan and instructions Outcome: Partially Met Problem: Pain Goal: Manage acute pain Outcome: Partially Met Problem: Nausea/Vomiting Goal: Absence of nausea/vomiting Outcome: Partially Met Goal: Nutrition intake to meet estimated needs Outcome: Partially Met [facility] 01-09-2023 Miscellaneous Notes Formattin g of this note might be different from the original. Problem: Actual or potential alteration in health Goal: Absence of healthcare acquired conditions Outcome: Partially Met Goal: Knowledge of Interdisciplinary Plan of Care Outcome: Partially Met Goal: Knowledge of Enviroment Outcome: Partially Met Problem: Plan for Discharge Goal: Knowledge of discharge plan and instructions Outcome: Partially Met Problem: Pain Goal: Manage acute pain Outcome: Partially Met Problem: Nausea/Vomiting Goal: Absence of nausea/vomiting Outcome: Partially Met Goal: Nutrition intake to meet estimated needs Outcome: Partially Met documented in this encounter [facility] 01-08-2023 Emergency departm ent Note Report called to the floor. [facility] 01-08-2023 Emergency departm ent Note Report called to the floor. IN WITH PATIENT AT THIS TIME. PATIENT AND DENY ANY NEEDS. NO QUESTIONS AT THIS TIME. ED PROVIDER NOTE [facility] EMERGENCY DEPARTMENT NAME: Efren Cosby AGE: 37 y.o. : 1985 VISIT DATE: 01/08/2023 CSN: [id number] PCP: Kashmir Hernandes MD Chief Complaint Patient presents with Abdominal Pain This is a 37-year-old with history of Crohn's coming intervention with complaint of severe diffuse abdominal pain associated with extensive diarrhea, 20 times a day with some chills and nausea and vomiting, does not admit to actual fever or chest pain. Patient states his pain is stable on Humira until about 3 to 4 months ago when he was started new medication, infusion once a month which initially worked but in the past 3 weeks has been having increasing diarrhea nausea vomiting and abdominal pain. Patient states he has been followed by his GI doctor in [place]. Patient denies dysuria, cough or shortness of breath, flank or back pain. He states he always have some blood in the diarrhea stool. Denies any other significant past medical history besides chronic disease Past Medical History: Diagnosis Date Crohn's colitis (HCC) No past surgical history on file. No family history on file. Social History Socioeconomic History Marital status: Unknown Tobacco Use Smoking status: Never Passive exposure: Never Smokeless tobacco: Never Substance and Sexual Activity Drug use: Never No current outpatient medications on file prior to encounter. No Known Allergies Review of Systems Gastrointestinal: Positive for abdominal pain, diarrhea, nausea and vomiting. All other systems reviewed and are negative. Patient Vitals for the past 24 hrs: BP Temp Temp src Pulse Resp SpO2 Weight 01/08/23 1745 (!) 95/52 -- -- 90 (!) 10 97 % -- 01/08/23 1713 -- 98 F (36.7 C) Oral -- -- -- 77.1 kg (170 lb) 01/08/23 1708 -- -- -- -- (!) 19 -- -- 01/08/23 1702 125/72 -- Oral 74 16 99 % -- Physical Exam Vitals and nursing note reviewed. Constitutional: General: He is not in acute distress. Appearance: He is not ill-appearing. Cardiovascular: Rate and Rhythm: Normal rate and regular rhythm. Heart sounds: Normal heart sounds. Pulmonary: Effort: Pulmonary effort is normal. No respiratory distress. Breath sounds: Normal breath sounds. No stridor. No wheezing, rhonchi or rales. Chest: Chest wall: No tenderness. Abdominal: General: There is no distension. Palpations: Abdomen is soft. Comments: Diffuse moderate abdominal tenderness Neurological: Mental Status: He is oriented to person, place, and time. Laboratory & Radiographic Imaging (if done): Results for orders placed or performed during the hospital encounter of 01/08/23 CMP Result Value Ref Range Sodium 139 135 - 145 mmol/L Potassium 3.9 3.5 - 5.1 mmol/L Chloride 108 98 - 108 mmol/L Bicarbonate 25 21 - 32 mmol/L Anion Gap 10 10 - 20 mmol/L Glucose 152 (H) 65 - 99 mg/dL BUN 15 8 - 25 mg/dL Creatinine 1.19 0.50 - 1.30 mg/dL eGFR 81 >=60 mL/min/1.73 m2 BUN/Creatinine Ratio 12.6 10.0 - 20.0 Total Protein 7.8 6.0 - 8.0 g/dL Albumin 3.8 3.2 - 5.2 g/dL Calcium 8.9 8.4 - 10.2 mg/dL Alkaline Phosphatase 49 40 - 140 U/L AST 20 0 - 45 U/L Total Bilirubin 0.7 0.0 - 1.3 mg/dL ALT 25 14 - 65 U/L Lipase Result Value Ref Range Lipase 65 (L) 73 - 393 U/L CBC Auto Differential Result Value Ref Range WBC 11.38 (H) 4.50 - 11.00 K/mcL RBC 4.47 (L) 4.50 - 5.90 M/mcL Hemoglobin 12.9 (L) 13.5 - 17.5 g/dL Hematocrit 39.0 (L) 41.0 - 53.0 % MCV 87.2 80.0 - 100.0 fL MCH 28.9 26.0 - 34.0 pg MCHC 33.1 31.0 - 37.0 g/dL Platelets 252 150 - 400 K/mcL RDW - CV 13.2 11.6 - 14.8 % MPV 9.1 (L) 9.4 - 12.4 fL Neutrophils 91.9 % Lymphocytes 2.6 % Monocytes 5.0 % Eosinophils 0.0 % Basophils 0.2 % IG Percent 0.30 % Neutrophils Abs 10.46 (H) 1.70 - 7.00 K/mcL Lymphocytes Abs 0.30 (L) 0.90 - 4.00 K/mcL Monocytes Abs 0.57 0.30 - 0.90 K/mcL Eosinophils Abs 0.00 0.00 - 0.50 K/mcL Basophils Abs 0.02 0.00 - 0.30 K/mcL IG Absolute 0.03 0.00 - 0.30 K/mcL Nucleated RBC 0.0 % Nucleated RBC Abs 0.00 0.00 - 0.00 K/mcL CT Abdomen Pelvis With IV Contrast Only Final Result 1. Thickening of the colon diffusely and of the terminal ileum. This is favored to be secondary to patient's known Crohn's disease. 2. The bowel is not obstructed. Workstation ID: [id number] Procedures Medical Decision Making 37-year-old sitting in a position complaining severe diffuse abdominal pain in the past 3 weeks that seems to have gotten worse since yesterday with extensive diarrhea the patient states more than 20 times a day with some blood in it surgery with nausea and vomiting. Patient states he has Crohn's but denies any other symptoms. His medical history. He states his symptoms started out over 3 weeks ago and progressively has gotten worse. He thinks the new medication he is on, Skyrizi infusion once a month. He said he has always had bright red blood in his diarrhea blood in the diarrhea is not new. States he has had some chills but denies actual fever. Patient abdominal exam reveals moderate diffuse tenderness on palpation without peritoneal signs. Patient received Dilaudid 1 mg IV push which she states typically control his pain medication along with Zofran 4 mg IV push. Labs consisting of lipase, CMP and CBC obtained. If CBC reveals significant elevated white count will consider lactic acid and blood cultures. CT abdomen pelvis with IV contrast obtained. CBC, lipase and CMP lab results are within normal limits. CT abdomen pelvis with IV contrast reveals: 1. Thickening of the colon diffusely and of the terminal ileum. This is favored to be secondary to patient's known Crohn's disease. 2. The bowel is not obstructed. Patient blood pressure dropped systolic into the mid 90s after the Dilaudid 1 mg IV push was given for pain control. Patient is receiving a second liter of normal saline IV bolus. He looks very dry. Dilaudid and Zofran seem to be controlling the patient's pain nausea very well. Patient is now admitted by the hospitalist service for further care recommendation. Hospitalist requested CT of the obtained for these lab results is currently pending. Patient is admitted and will be followed by the hospitalist service. Work-up finding and plan of care discussed with patient and his and they are in agreement. Critical care time of 30 minutes was spent on this patient excluding any separately billable procedure time . . Clinical Impression: 1. Crohn's disease of colon without complication (HCC) 2. Dehydration ED Disposition ED Disposition Hospitalize Condition -- Comment Reason for inpatient over two midnights: IV fluids Follow-up Information Follow-up information has not been specified. Contact information for after-discharge care Follow-up information has not been specified. Bret Case MD 01/08/231817 PT REPORTS THAT PATIENT HAS CROHN'S DISEASE AND RECENTLY SWITCHED MEIDCATIONS AND HAS THROWN UP 40 TIMES OVER THE LAST FEW DAYS. documented in this encounter [facility] 01-08-2023 History and physi basilio note [facility] [facility] Patient Name: Efren Cosby : 1985 MR #: [id number] Admit Date: 01/08/2023 Physicians: Kashmir Hernandes MD (Family); No ref. provider found (Referring) Efren Cosby is a 37 y.o. male patient of Kashmir Hernandes MD with history of Crohn disease last colonoscopy in July following Dr. Wilde in [place] presented to [facility] with abdominal pain vomiting diarrhea. Diarrhea vomiting due to exacerbation of Crohn disease Start liquid diet Pain management IV fluids Prednisone 40 mg p.o. daily Consult GI Just finished course of Skyrizi, used to be on Humira before Nausea vomiting Zofran IV as needed Protonix 40 IV daily Residence prior to admission: house or apartment Was patient transferred from outlying hospital or ED no Quality Measures DVT Prophylaxis: SCDs Juarez Catheter: absent Medication Reconciliation: Verified Risk variables present on admission: None. Please see assessment and plan for further details. Code Status Full Code; code status verified on 01/08/2023 with patient (capacity intact) Chief Complaint diarrhea vomiting History of Present Illness 37-year-old male with past medical history of Crohn disease since long time used to be on Humira, following Dr. Shah in [place] and he is off Humira then start course of Skyrizi at 0 - 4 - 8 weeks interval., Had diarrhea over the last couple days get worse with vomiting today and mild abdominal discomfort, CT thickening of the colon diffusely and of the terminal ileum, no small bowel obstruction. Past Medical History Past Medical History: Diagnosis Date Crohn's colitis (HCC) Past Surgical History No past surgical history on file. Family History No family history on file. Social History Social History Tobacco Use Smoking Status Never Passive exposure: Never Smokeless Tobacco Never Social History Substance and Sexual Activity Alcohol Use Not on file Social History Substance and Sexual Activity Drug Use Never Allergy Information I have reviewed the patient's allergies. Patient has no known allergies. Home Medications Home medications were reviewed. Review Of Systems All relevant systems have been reviewed and are negative except as noted in HPI or below Physical Examination BP 110/64 Pulse 89 Temp 98 F (36.7 C) (Oral) Resp 14 Wt 77.1 kg (170 lb) SpO2 95% General Appearance: alert; acutely ill appearing; in mild acute distress HEENT: Head- normocephalic; Eyes- EOMI, sclera anicteric; Throat- mucous membranes moist Cardiovascular: regular rate and rhythm; peripheral edema absent Respiratory: lungs clear to auscultation; without wheezes, rales or rhonchi; on room air Abdomen: soft, mild generalized tenderness, no guarding or rebound tenderness, bowel sounds present Neurological: oriented x 3; normal speech; no focal findings or movement disorder noted Musculoskeletal: no significant deformity or tenderness to palpation Skin: normal coloration Psych: normal mood and affect [facility] 01-08-2023 History and physi basilio note [facility] Patient Name: Efren Cosby : 1985 MR #: [id number] Admit Date: 01/08/2023 Physicians: Kashmir Hernandes MD (Family); No ref. provider found (Referring) Efren Cosby is a 37 y.o. male patient of Kashmir Hernandes MD with history of Crohn disease last colonoscopy in July following Dr. Wilde in [place] presented to [facility] with abdominal pain vomiting diarrhea. Diarrhea vomiting due to exacerbation of Crohn disease Start liquid diet Pain management IV fluids Prednisone 40 mg p.o. daily Consult GI Just finished course of Skyrizi, used to be on Humira before Nausea vomiting Zofran IV as needed Protonix 40 IV daily Residence prior to admission: house or apartment Was patient transferred from outlying hospital or ED no Quality Measures DVT Prophylaxis: SCDs Juarez Catheter: absent Medication Reconciliation: Verified Risk variables present on admission: None. Please see assessment and plan for further details. Code Status Full Code; code status verified on 01/08/2023 with patient (capacity intact) Chief Complaint diarrhea vomiting History of Present Illness 37-year-old male with past medical history of Crohn disease since long time used to be on Humira, following Dr. Shah in [place] and he is off Humira then start course of Skyrizi at 0 - 4 - 8 weeks interval., Had diarrhea over the last couple days get worse with vomiting today and mild abdominal discomfort, CT thickening of the colon diffusely and of the terminal ileum, no small bowel obstruction. Past Medical History Past Medical History: Diagnosis Date Crohn's colitis (HCC) Past Surgical History No past surgical history on file. Family History No family history on file. Social History Social History Tobacco Use Smoking Status Never Passive exposure: Never Smokeless Tobacco Never Social History Substance and Sexual Activity Alcohol Use Not on file Social History Substance and Sexual Activity Drug Use Never Allergy Information I have reviewed the patient's allergies. Patient has no known allergies. Home Medications Home medications were reviewed. Review Of Systems All relevant systems have been reviewed and are negative except as noted in HPI or below Physical Examination BP 110/64 Pulse 89 Temp 98 F (36.7 C) (Oral) Resp 14 Wt 77.1 kg (170 lb) SpO2 95% General Appearance: alert; acutely ill appearing; in mild acute distress HEENT: Head- normocephalic; Eyes- EOMI, sclera anicteric; Throat- mucous membranes moist Cardiovascular: regular rate and rhythm; peripheral edema absent Respiratory: lungs clear to auscultation; without wheezes, rales or rhonchi; on room air Abdomen: soft, mild generalized tenderness, no guarding or rebound tenderness, bowel sounds present Neurological: oriented x 3; normal speech; no focal findings or movement disorder noted Musculoskeletal: no significant deformity or tenderness to palpation Skin: normal coloration Psych: normal mood and affect documented in this encounter [facility] 01-08-2023 Emergency departm ent Note IN WITH PATIENT AT THIS TIME. PATIENT AND DENY ANY NEEDS. NO QUESTIONS AT THIS TIME. [facility] 01-08-2023 Physician Emergen cy department Note ED PROVIDER NOTE [facility] EMERGENCY DEPARTMENT NAME: Efren Cosby AGE: 37 y.o. : 1985 VISIT DATE: 01/08/2023 CSN: [id number] PCP: Kashmir Hernandes MD Chief Complaint Patient presents with Abdominal Pain This is a 37-year-old with history of Crohn's coming intervention with complaint of severe diffuse abdominal pain associated with extensive diarrhea, 20 times a day with some chills and nausea and vomiting, does not admit to actual fever or chest pain. Patient states his pain is stable on Humira until about 3 to 4 months ago when he was started new medication, infusion once a month which initially worked but in the past 3 weeks has been having increasing diarrhea nausea vomiting and abdominal pain. Patient states he has been followed by his GI doctor in [place]. Patient denies dysuria, cough or shortness of breath, flank or back pain. He states he always have some blood in the diarrhea stool. Denies any other significant past medical history besides chronic disease Past Medical History: Diagnosis Date Crohn's colitis (HCC) No past surgical history on file. No family history on file. Social History Socioeconomic History Marital status: Unknown Tobacco Use Smoking status: Never Passive exposure: Never Smokeless tobacco: Never Substance and Sexual Activity Drug use: Never No current outpatient medications on file prior to encounter. No Known Allergies Review of Systems Gastrointestinal: Positive for abdominal pain, diarrhea, nausea and vomiting. All other systems reviewed and are negative. Patient Vitals for the past 24 hrs: BP Temp Temp src Pulse Resp SpO2 Weight 01/08/23 1745 (!) 95/52 -- -- 90 (!) 10 97 % -- 01/08/23 1713 -- 98 F (36.7 C) Oral -- -- -- 77.1 kg (170 lb) 01/08/23 1708 -- -- -- -- (!) 19 -- -- 01/08/23 1702 125/72 -- Oral 74 16 99 % -- Physical Exam Vitals and nursing note reviewed. Constitutional: General: He is not in acute distress. Appearance: He is not ill-appearing. Cardiovascular: Rate and Rhythm: Normal rate and regular rhythm. Heart sounds: Normal heart sounds. Pulmonary: Effort: Pulmonary effort is normal. No respiratory distress. Breath sounds: Normal breath sounds. No stridor. No wheezing, rhonchi or rales. Chest: Chest wall: No tenderness. Abdominal: General: There is no distension. Palpations: Abdomen is soft. Comments: Diffuse moderate abdominal tenderness Neurological: Mental Status: He is oriented to person, place, and time. Laboratory & Radiographic Imaging (if done): Results for orders placed or performed during the hospital encounter of 01/08/23 CMP Result Value Ref Range Sodium 139 135 - 145 mmol/L Potassium 3.9 3.5 - 5.1 mmol/L Chloride 108 98 - 108 mmol/L Bicarbonate 25 21 - 32 mmol/L Anion Gap 10 10 - 20 mmol/L Glucose 152 (H) 65 - 99 mg/dL BUN 15 8 - 25 mg/dL Creatinine 1.19 0.50 - 1.30 mg/dL eGFR 81 >=60 mL/min/1.73 m2 BUN/Creatinine Ratio 12.6 10.0 - 20.0 Total Protein 7.8 6.0 - 8.0 g/dL Albumin 3.8 3.2 - 5.2 g/dL Calcium 8.9 8.4 - 10.2 mg/dL Alkaline Phosphatase 49 40 - 140 U/L AST 20 0 - 45 U/L Total Bilirubin 0.7 0.0 - 1.3 mg/dL ALT 25 14 - 65 U/L Lipase Result Value Ref Range Lipase 65 (L) 73 - 393 U/L CBC Auto Differential Result Value Ref Range WBC 11.38 (H) 4.50 - 11.00 K/mcL RBC 4.47 (L) 4.50 - 5.90 M/mcL Hemoglobin 12.9 (L) 13.5 - 17.5 g/dL Hematocrit 39.0 (L) 41.0 - 53.0 % MCV 87.2 80.0 - 100.0 fL MCH 28.9 26.0 - 34.0 pg MCHC 33.1 31.0 - 37.0 g/dL Platelets 252 150 - 400 K/mcL RDW - CV 13.2 11.6 - 14.8 % MPV 9.1 (L) 9.4 - 12.4 fL Neutrophils 91.9 % Lymphocytes 2.6 % Monocytes 5.0 % Eosinophils 0.0 % Basophils 0.2 % IG Percent 0.30 % Neutrophils Abs 10.46 (H) 1.70 - 7.00 K/mcL Lymphocytes Abs 0.30 (L) 0.90 - 4.00 K/mcL Monocytes Abs 0.57 0.30 - 0.90 K/mcL Eosinophils Abs 0.00 0.00 - 0.50 K/mcL Basophils Abs 0.02 0.00 - 0.30 K/mcL IG Absolute 0.03 0.00 - 0.30 K/mcL Nucleated RBC 0.0 % Nucleated RBC Abs 0.00 0.00 - 0.00 K/mcL CT Abdomen Pelvis With IV Contrast Only Final Result 1. Thickening of the colon diffusely and of the terminal ileum. This is favored to be secondary to patient's known Crohn's disease. 2. The bowel is not obstructed. Workstation ID: [id number] Procedures Medical Decision Making 37-year-old sitting in a position complaining severe diffuse abdominal pain in the past 3 weeks that seems to have gotten worse since yesterday with extensive diarrhea the patient states more than 20 times a day with some blood in it surgery with nausea and vomiting. Patient states he has Crohn's but denies any other symptoms. His medical history. He states his symptoms started out over 3 weeks ago and progressively has gotten worse. He thinks the new medication he is on, Skyrizi infusion once a month. He said he has always had bright red blood in his diarrhea blood in the diarrhea is not new. States he has had some chills but denies actual fever. Patient abdominal exam reveals moderate diffuse tenderness on palpation without peritoneal signs. Patient received Dilaudid 1 mg IV push which she states typically control his pain medication along with Zofran 4 mg IV push. Labs consisting of lipase, CMP and CBC obtained. If CBC reveals significant elevated white count will consider lactic acid and blood cultures. CT abdomen pelvis with IV contrast obtained. CBC, lipase and CMP lab results are within normal limits. CT abdomen pelvis with IV contrast reveals: 1. Thickening of the colon diffusely and of the terminal ileum. This is favored to be secondary to patient's known Crohn's disease. 2. The bowel is not obstructed. Patient blood pressure dropped systolic into the mid 90s after the Dilaudid 1 mg IV push was given for pain control. Patient is receiving a second liter of normal saline IV bolus. He looks very dry. Dilaudid and Zofran seem to be controlling the patient's pain nausea very well. Patient is now admitted by the hospitalist service for further care recommendation. Hospitalist requested CT of the obtained for these lab results is currently pending. Patient is admitted and will be followed by the hospitalist service. Work-up finding and plan of care discussed with patient and his and they are in agreement. Critical care time of 30 minutes was spent on this patient excluding any separately billable procedure time . . Clinical Impression: 1. Crohn's disease of colon without complication (HCC) 2. Dehydration ED Disposition ED Disposition Hospitalize Condition -- Comment Reason for inpatient over two midnights: IV fluids Follow-up Information Follow-up information has not been specified. Contact information for after-discharge care Follow-up information has not been specified. Bret Case MD 01/08/231817 [facility] 01-08-2023 Emergency departm ent Triage note PT REPORTS THAT PATIENT HAS CROHN'S DISEASE AND RECENTLY SWITCHED MEIDCATIONS AND HAS THROWN UP 40 TIMES OVER THE LAST FEW DAYS. [facility] documented in this encounter [facility] Discharge instructions* Attachments The following attachments cannot be sent through Care Everywhere. * Crohn's Disease (Algerian) * [facility] ([place]ian) [facility] Family History No Family History Records FoundNo Family History Records FoundNo Family History Records FoundNo Family History Records FoundNo Family History Records FoundNo Family History Records FoundNo Family History Records FoundNo Family History Records Found Advance Directives Documents on File Type Date Recorded Patient Newsagent Expl anation Advance Directives and Livin g Will 05/23/2019 9:06 AM Latest Code Status on File Code Status Date Activated Date Inactivated Comments Full Code 01/08/2023 6:10 PM 01/09/2023 4:14 PM Assessments Diagnosis Other screening mammogram Routine general medical examination at a health care facility Hospital Course Note EMERGENCY DEPARTMENT DISCHAR GE SUMMARY PATIENT NAME:EFREN COSBY MRN: [id number] AGE: 35 Years SEX: Male PHONE:[phone] DOS: 09/19/2020 02:59:00 : 1985 ATTENDING PHYSICIAN:Ford Burton MD PCP: Kashmir Hernandes MD CHIEF COMPLAINT: ABD Pain/N/V Allergies NKA Problems Active Crohns disease of small intestine DISCHARGE DIAGNOSIS: DISCHARGE INSTRUCTIONS: Work Release 3 day no restrictions -[place] [facility] (CUSTOM); Crohn Disease; Abdominal Pain (U54137) ED PHYSICIAN DOCUMENTATION: DISPOSITION: Time of Departure From ER 09/19/2020 07:04 Discharge/Transfer From ER Home 01 MEDICATION LISTS: CURRENT MEDICATION LIST aluminum hydroxide-magnesium hydroxide (Maalox 200 mg-200 mg oral tablet) 2 Tab(s) Chew after Meals and at Bedtime as needed For Pain. Refills: 0. ondansetron (Zofran 4 mg oral tablet) 1 Tab(s) By Mouth every 8 hours as needed Nausea and Vomitting for 3 Days. Refills: 0. PredniSONE (predniSONE 50 mg oral tablet) 1 Tab(s) By Mouth once a day for 10 Days. with food or m (more content not included)... Reason for Referral Specialty Diagnoses / Procedures Referred By Contac t Referred To Contact Gastroenterology Diagnoses Crohn's disease of colon without complication (HCC) Millie Maurer MD [address] [place] [address] Referral ID Status Reason Start Date Expiration Date V isits Requested Visits Authorized [id number] Authorized 01/09/2023 01/09/2024 1 1 Additional Source Comments (unrecognized sect ion and content) No Status Records FoundNo Status Records FoundNo Status Records FoundNo Status Records FoundNo Status Records FoundNo Status Records FoundNo Status Records FoundNo Status Records Found INFORMATION SOURCE (unrecogn ized section and content) DATE CREATED AUTHOR AUTHOR'S ORGANIZ ATION 07/24/2018 [facility] DATE CREATED AUTHOR AUTHOR'S ORGANIZ ATION 07/25/2018 [facility] DATE CREATED AUTHOR AUTHOR'S ORGANIZ ATION 05/24/2019 [facility] DATE CREATED AUTHOR AUTHOR'S ORGANIZ ATION 07/27/2020 [facility] DATE CREATED AUTHOR AUTHOR'S ORGANIZ ATION 09/20/2020 Alverto Sanders [facility] DATE CREATED AUTHOR AUTHOR'S ORGANIZ ATION 05/11/2022 [facility] DATE CREATED AUTHOR AUTHOR'S ORGANIZ ATION 01/20/2023 [facility] Reason for Visit (unrecogniz ed section and content) Specialty Diagnoses / Procedures Referred By Gilbert t Referred To Contact Diagnoses Dehydration Crohn's disease of colon with complication (HCC) Crohn's disease of colon without complication (HCC) Referral ID Status Reason Start Date Expiration Date Visits Re quested Visits Authorized [id number] 1 1 Scheduled Active and Recently Administ ered Medications (unrecognized section and content) Continuous Medication Order 01/07/2023 01/08/2023 01/09/2023 sodium chloride 0.9% (NS) 100 mL/hr, Intravenous, Continuous, Starting on 01/08/23 at 1940 2124 (New Bag - Provider: Lisa Iqbal RN) 0709 (Rate/Dose Change - Provider: Angella Romero LPN)0744 (Paused - Provider: Angella Romero LPN)0746 (Restarted - Provider: Angella Romero LPN)0747 (Stopped - Provider: Angella Romero LPN)1040 (New Bag - Provider: Angella Romero LPN)1250 (Rate/Dose Verify - Provider: Angella Romero LPN)1251 (Stopped - Provider: Angella Romero LPN) PRN Medication Order 01/07/2023 01/08/2023 01/09/2023 acetaminophen (TYLENOL) tablet 650 mg 650 mg, Oral, Every 4 hours PRN, mild pain, fever 100.4 F or greater, headaches, Starting on 01/08/23 at 1935 iopamidoL (ISOVUE-370) 370 mg iodine /mL (76 %) injection 75 mL (COMPLETED) 75 mL, Intravenous, Once in imaging, contrast, Starting on 01/08/23 at 1745, For 1 dose 1754 (Contrast Administered - Provider: Vy Lui, TECHNOLOGIST) morphine injection 2-4 mg 2-4 mg, Intravenous, Every 3 hours PRN (may repeat), moderate to severe pain, Starting on Mon01/08/23 at 1935, Initiate with 2 mg IV every 3 hours prn moderate to severe pain. For unrelieved pain, may repeat 2 mg within 30 minutes of initial dose. If pain is RELIEVED after repeat dose, change to 4 mg every 3 hours prn moderate to severe pain. If pain is UNrelieved after repeat dose, or patient requires dose reduction, call physician. May use IV for breakthrough pain or if unable to tolerate enteral routes. naloxone (NARCAN) injection 0.1 mg(Linked Group 2) 0.1 mg, Intravenous, As needed, opioid reversal, For respiratory rate less than or equal to 8 per minute., Starting on Mon01/08/23 at 1935, Mix nalOXone (NARCAN) 0.4 mg (1mL) with 9 mL of Normal Saline to total 10 mL. Administer 0.1 mg (2.5mL) IV Push every 2 minutes until respiratory rate is 10 or greater. naloxone (NARCAN) injection 0.4 mg(Linked Group 2) 0.4 mg, Intravenous, As needed, opioid reversal, patient is pulseless, breathless, and unresponsive, Starting on Mon01/08/23 at 1935, Call a code first, then administer naloxone dose undiluted IV Push over 30 seconds. ondansetron (ZOFRAN) injection 4 mg(Linked Group 3) 4 mg, Intravenous, Every 6 hours PRN, nausea, vomiting, Starting on Mon01/08/23 at 1935, Use oral route first, if tolerated. ondansetron (ZOFRAN-ODT) disintegrating tablet 4 mg(Linked Group 3) 4 mg, Oral, Every 6 hours PRN, nausea, vomiting, Starting on Mon01/08/23 at 1935, Use oral route first, if tolerated. Formulation requires tablet remain in sealed package until immediately prior to dose being administered. sodium chloride (PF) (NS) 0.9 % contrast line flush 10 mL (COMPLETED) 10 mL, Intravenous, Once in imaging, contrast, Per home extension agent (Radiology) for line patency check prior to contrast administration, Starting on Mon01/08/23 at 1745, For 1 dose 1754 (Given - Provider: Jose Roberto Lui, TECHNOLOGIST) sodium chloride (PF) (NS) 0.9 % contrast line flush 80 mL (COMPLETED) 80 mL, Intravenous, Once in imaging, contrast, Per home extension agent (Radiology), Starting on 01/08/23 at 1745, For 1 dose, 30 mL BEFORE contrast administration 50 mL AFTER contrast administration 1754 (Given - Provider: Jose Roberto Lui, TECHNOLOGIST) sodium chloride (PF) (NS) flush 5 mL(Linked Group 1) 5 mL, Intravenous, As needed, line care, Starting on 01/08/23 at 1935 sodium chloride 0.9% (NS)(Linked Group 1) 0-150 mL/hr, Intravenous, As needed, To flush line after IV infusions when no maintenance IV ordered or a compatibility issue. Infuse 20ml at the same rate as the secondary infusion, Starting on Mon01/08/23 at 1935, Run as Primary IV. NOT intended for KVO. Linked Groups Order Group 1: Saline lock IV (CANCELED) Routine, Continuous, Starting on Mon01/08/23 at 1936, Until Specified And sodium chloride (PF) (NS) flush 5 mLJump to med 5 mL, Intravenous, As needed, line care, Starting on Mon01/08/23 at 1935 And sodium chloride (PF) (NS) flush 5 mLJump to med 5 mL, Intravenous, Every 8 hours scheduled, First dose on Mon01/08/23 at 2200
Saline lock
And sodium chloride 0.9% (NS)Jump to med 0-150 mL/hr, Intravenous, As needed, To flush line after IV infusions when no maintenance IV ordered or a compatibility issue. Infuse 20ml at the same rate as the secondary infusion, Starting on Mon01/08/23 at 1935
Run as Primary IV. NOT intended for KVO.
Group 2: naloxone (NARCAN) injection 0.1 mgJump to med 0.1 mg, Intravenous, As needed, opioid reversal, For respiratory rate less than or equal to 8 per minute., Starting on Mon01/08/23 at 1935
Mix nalOXone (NARCAN) 0.4 mg (1mL) with 9 mL of Normal Saline to total 10 mL. Administer 0.1 mg (2.5mL) IV Push every 2 minutes until respiratory rate is 10 or greater.
And Notify physician (CANCELED) STAT, Until discontinued, Starting on 01/08/23 at 1936, Until Specified
Respiratory rate less than: 8
For respiratory rate less than or equal to 8, notify physician and/or appropriate staff for additional orders. And naloxone (NARCAN) injection 0.4 mgJump to med 0.4 mg, Intravenous, As needed, opioid reversal, patient is pulseless, breathless, and unresponsive, Starting on 01/08/23 at 1935
Call a code first, then administer naloxone dose undiluted IV Push over 30 seconds.
Group 3: ondansetron (ZOFRAN-ODT) disintegrating tablet 4 mgJump to med 4 mg, Oral, Every 6 hours PRN, nausea, vomiting, Starting on 01/08/23 at 1935
Use oral route first, if tolerated. Formulation requires tablet remain in sealed package until immediately prior to dose being administered.
Or ondansetron (ZOFRAN) injection 4 mgJump to med 4 mg, Intravenous, Every 6 hours PRN, nausea, vomiting, Starting on 01/08/23 at 1935
Use oral route first, if tolerated.
Care Teams (unrecognized sec tion and content) FOR RECORDS PERTAINING TO PATIENTS WHO ARE OR HAVE BEEN ENROLLED IN A CHEMICAL DEPENDENCY/SUBSTANCEABUSE PROGRAM, SOME INFORMATION MAY BE OMITTED. This clinical summary was aggregated from multiple sources. Caution should be exercised in using it in the provision of clinical care. This summary normalizes information from multiple sources, and as a consequence, information in this document may materially change the coding, format and clinical context of patient data. In addition, data may be omitted in some cases. CLINICAL DECISIONS SHOULD BE BASED ON THE PRIMARY CLINICAL RECORDS. [employer] provides no warranty or guarantee of the accuracy or completeness of information in this document.
== END | disposition home or self-care (01) ==
LOC: LABSPEC 15:46
PROVIDERS: PCP Family Medicine; Referring Provider Otolaryngology Otolaryngology/Facial Plastic Surgery; Visit Provider Otolaryngology Otolaryngology/Facial Plastic Surgery
DX: J02.9 Acute pharyngitis, unspecified (principal)
CPT/HCPCS: 87070; 87077; 87186

== ENCOUNTER → 2025-06-11 | Outpatient (CLI) | payer OTHER, SELFPAY ==
[2025-06-11 16:15] LABS: Hematocrit 37.0 % (40-54); Hemoglobin 12.6 g/dL (13.0-16.5); Mean Corp Hgb Conc 34.1 g/dL (32-36); Mean Corpuscular Volume 87.3 fL (80-94); Mean Platelet Vol. 9.8 fl (6.2-12.0); Platelet Count 270 K/mm3 (150-450); RBC Distribution Width CV 13.5 % (11.6-14.6); RBC Distribution Width SD 43.3 fl (35.1-43.9); Red Blood Count 4.24 M/mm3 (4.6-6.2); White Blood Count 6.6 K/mm3 (4.4-11.0)
[2025-06-11 16:35] LABS: AST(SGOT) 30 U/L (<=37); Alanine Aminotransfer ALT/SGPT 23 U/L (<=46); Albumin, Serum 4.7 g/dL (3.5-5.0); Alkaline Phosphatase 49 U/L (40-129); Anion Gap 9 (5-15); BUN 14 mg/dL (4-19); BUN/Creat Ratio 13.6 RATIO (10-20); CRP < 3.00 mg/L (0.0-3.0); Calcium,Total 9.8 mg/dL (7.6-11.0); Carbon Dioxide 26.9 mmol/L (21.0-32.0); Chloride 104 mmol/L (98-108); Globulin 2.9 g/dL (2.2-4.2); Glucose 104 mg/dL (70-99); Potassium 4.3 mmol/L (3.3-5.1)
== END | disposition home or self-care (01) ==
PROVIDERS: Referring Provider Internal Medicine Gastroenterology; Visit Provider Internal Medicine Gastroenterology
DX: K50.90 Crohn's disease, unspecified, without complications (principal)
CPT/HCPCS: 36415; 80053; 85027; 85652; 86140